=== PATIENT | female | born 1945 | race Caucasian/White ===

== ENCOUNTER 2024-02-03 08:00 | Outpatient (CLI) | payer MEDICARE, BC | END 2024-02-03 23:59 | disposition home or self-care (01) | LOC: LAB.N 08:00 | PROVIDERS: ATTEND Physician Assistant Medical | DX: U07.1 COVID-19 (principal) ==

== ENCOUNTER 2024-02-07 06:40 | Emergency (ER) | payer MEDICARE, BC ==
[2024-02-07 07:38] LABS: BASOPHILS % (AUTO) 0.4 %; EOSINOPHILS % (AUTO) 0.2 %; HCT - HEMATOCRIT 40.5 % (37.0-47.0); HGB - HEMOGLOBIN 13.3 g/dL (12.0-16.0); LYMPHOCYTES # (AUTO) 2.8 10^3/uL (1.5-3.5); LYMPHOCYTES % (AUTO) 28.5 %; MEAN CORPUSCULAR HEMOGLOBIN 29.1 pg (27.0-31.0); MEAN CORPUSCULAR HGB CONC 32.8 g/dL (32.0-36.0); MEAN CORPUSCULAR VOLUME 88.6 fL (81.0-99.0); MEAN PLATELET VOLUME 10.2 fL (7.9-10.8); MONOCYTES # (AUTO) 0.8 10^3/uL (0.0-1.0); MONOCYTES % (AUTO) 7.9 %; NEUTROPHILS # (AUTO) 6.2 10^3/uL (1.5-6.6); NEUTROPHILS % (AUTO) 62.7 %; PLT - PLATELET COUNT 216 10^3/uL (130-450); RED BLOOD COUNT 4.57 10^6/uL (4.20-5.40); RED CELL DISTRIBUTION WIDTH 14.4 % (12.0-15.0); WHITE BLOOD COUNT 9.9 x10^3/uL (4.8-10.8)
[2024-02-07 07:51] LABS: ALBUMIN/GLOBULIN RATIO 1.7 (1.0-2.2); BILIRUBIN,TOTAL 0.4 mg/dL (0.2-1.0); CALCIUM 9.2 mg/dL (8.5-10.3); CREATININE 0.8 mg/dL (0.6-1.3); POTASSIUM 3.6 mmol/L (3.5-4.5); TOTAL PROTEIN 6.4 g/dL (6.4-8.9)
--- NOTE | 2024-02-07 07:53 | ED Physician Documentation ---
PD HPI CHEST PAIN - Stated complaint Stated Complaint: SOA, COVID+ - Chief complaint Chief Complaint: Resp - History obtained from History obtained from: Patient - Additional information Additional information: She developed symptomatic COVID 4 days ago. She was placed on prednisone and albuterol. She has had some intermittent mild chest pains and shortness of breath since she was diagnosed with COVID but awoke this morning more short of breath with some chest heaviness about 330 this morning. Cough is nonproductive. No history of heart or lung problems. PD PAST MEDICAL HISTORY - Past Medical History Past Medical History: No - Past Surgical History Past Surgical History: Yes General: Cholecystectomy - Present Medications Home Medications: Ambulatory Orders Medication Instructions Recorded Confirmed Albuterol 2.5 mg INH Q4H PRN #30 ml 02/07/24 - Allergies Allergies/Adverse Reactions: Allergies Allergy/AdvReac Type Severity Reaction Status Date / Time aspirin AdvReac Emesis Verified 02/07/24 07:10 - Social History Does the pt smoke?: No Smoking Status: Never smoker Does the pt drink ETOH?: No Does the pt have substance abuse?: No - Immunizations Immunizations are current?: Yes - POLST Patient has POLST: No PD ED PE NORMAL - Vitals Vital signs reviewed: Yes - General General: Alert and oriented X 3, No acute distress - HEENT HEENT: PERRL, EOMI - Neck Neck: Supple, no meningeal sign, No bony TTP - Cardiac Cardiac: RRR, No murmur - Respiratory Respiratory: Other (Faint fine rhonchi at both bases, nonlabored) - Extremities Extremities: No edema - Neuro Neuro: Alert and oriented X 3 Results - Vitals Vitals: Vital Signs - 24 hr 02/07/24 02/07/24 02/07/24 07:06 07:37 08:16 Temperature 36.6 C Heart Rate 79 69 88 Respiratory 20 20 20 Rate Blood Pressure 158/79 H 166/77 H O2 Saturation 99 97 02/07/24 08:34 Temperature Heart Rate 74 Respiratory 18 Rate Blood Pressure 153/71 H O2 Saturation 96 Oxygen O2 Source Room air - EKG (time done) 0719 EKG releavant findings:: EKG personally interpreted by author of this note. Relevant findings are: Rate: Rate (enter#) (73) Rhythm: NSR [place]: Normal Intervals: Normal [place] QRS: Normal Ischemia: Normal ST segments - Labs Labs: Laboratory Tests 02/07/24 02/07/24 07:33 07:33 WBC 9.9 RBC 4.57 Hgb 13.3 Hct 40.5 MCV 88.6 MCH 29.1 MCHC 32.8 RDW 14.4 Plt Count 216 MPV 10.2 Neut # (Auto) 6.2 Lymph # (Auto) 2.8 [place] # (Auto) 0.8 Eos # (Auto) 0.0 Baso # (Auto) 0.0 Absolute Nucleated RBC 0.00 Nucleated RBC % 0.0 Sodium 141 Potassium 3.6 Chloride 105 Carbon Dioxide 30 Anion Gap 6.0 BUN 15 Creatinine 0.8 Estimated GFR (MDRD) 70 L Glucose 92 Calcium 9.2 Total Bilirubin 0.4 AST 26 ALT 42 Alkaline Phosphatase 83 Troponin I High Sens 2.7 Total Protein 6.4 Albumin 4.0 Globulin 2.4 Albumin/Globulin Ratio 1.7 - Rads (name of study) Single view chest x-ray is unremarkable/normal. Relevant Findings:: Final report received, EMP independent interpretation of test PD Medical Decision Making - ED course ED course: She has COVID and now has some chest pain and trouble breathing. She has been symptomatic long enough that I think the single troponin should be predictive and it is negative. Nothing in the history or physical to suggest PE or dissection. She was feeling better after an albuterol neb. Her chest x-ray was clear. CBC and CMP were otherwise unremarkable. Departure - Departure Disposition: 01 Home, Self Care Clinical Impression: COVID-19 Dyspnea Qualifiers: Dyspnea type: dyspnea on exertion Qualified Code(s): R06.09 - Other forms of dyspnea Condition: Good Record reviewed to determine appropriate education?: Yes Instructions: ED Viral Syndrome Prescriptions: Albuterol 2.5 mg INH Q4H PRN #30 ml PRN Reason: Wheezing Comments: Chest x-ray is clear and your markers for active heart disease are negative. Presume you are just having still congestion from the COVID. I am writing a prescription for nebulized medication. Return if you worsen. As discussed the nebulizer can be purchased relatively inexpensively [id number]. Discharge Date/Time: 02/07/24 08:40
[2024-02-07] MEDS: IPRATROPIUM/ALBUTEROL 3 ML NEB INH STA (08:09)
[2024-02-07 08:12] LABS: TROPONIN I HIGH SENSITIVITY 2.7 ng/L (2.3-14.8)
--- NOTE | 2024-02-07 08:22 | XRAY Report ---
PROCEDURE: Chest 1V INDICATIONS: dyspnea, covid TECHNIQUE: One view of the chest was acquired. COMPARISON: None. FINDINGS: Surgical changes and devices: None. Lungs and pleura: No pleural effusions or pneumothorax. Lungs are clear. Mediastinum: Mediastinal contours appear normal. Heart size is normal. Bones and chest wall: No suspicious bony lesions. Overlying soft tissues appear unremarkable. IMPRESSION: No acute cardiopulmonary process. Reviewed by: Boris Vidal MD on 02/07/2024 8:21 AM PDT Approved by: Boris Vidal MD on 02/07/2024 8:21 AM PDT Station ID: [id number]
[2024-02-07 08:36] VITALS: BP 153/71; O2SAT 96
== END 2024-02-07 08:40 | disposition home or self-care (01) ==
LOC: ED 06:40
DX: U07.1 COVID-19 (principal)
CPT/HCPCS: 36415; 80053; 84484; 85025; 93005; 94640; 99284